=== PATIENT | female | born 1980 ===

== ENCOUNTER 2017-03-26 08:59 | Emergency (ER) | payer BC, MEDICAID, OTHER ==
[2017-03-26 09:02] VITALS: BMI 40.0
[2017-03-26 09:04] VITALS: BP 133/55; PULSE 79; RESP 20; TEMP 98.3; O2SAT 100
--- NOTE | 2017-03-26 09:40 | ED PDOC ---
HPI: General Adult Time Seen by Provider: 03/26/17 09:12 Chief Complaint (Nursing): Flu-like Symptoms Chief Complaint (Provider): Sore throat History Per: Patient History/Exam Limitations: no limitations Onset/Duration Of Symptoms: Days (today) Additional Complaint(s): Pt. with sore throat but able to swallow. Bodyaches. No cough, nasal congestion. No fever. No nausea, vomit, diarrhea, neck pain, abd pain, back pain. Mild headache frontal, not worst in here life. No numbness, tingles. No weakness. Has dysuria and increased freq. Past Medical History Reviewed: Nursing Documentation, Vital Signs Vital Signs: Last Vital Signs Temp 98.3 F 03/26/17 09:03 Pulse 79 03/26/17 09:03 Resp 20 03/26/17 09:03 BP 133/55 L 03/26/17 09:03 Pulse Ox 100 03/26/17 09:40 - Medical History Other PMH: uti - Surgical History Surgical History: Cholecystectomy - Family History Family History: States: Unknown Family Hx - Social History Current smoker - smoking cessation education provided: No Alcohol: None Drugs: Denies - Home Medications Home Medications: Ambulatory Orders Medication Instructions Recorded oxyCODONE/Acetaminophen [Percocet 5 - 325 mg PO Q4 06/27/16 5/325 mg Tab] Ciprofloxacin HCl [Cipro] 250 mg PO BID #6 tab 03/26/17 Ibuprofen [Motrin] 600 mg PO TID 7 Days tab 03/26/17 - Allergies Allergies/Adverse Reactions: Allergies Allergy/AdvReac Type Severity Reaction Status Date / Time No Known Allergies Allergy Verified 06/27/16 10:41 Review of Systems Constitutional: Negative for: Fever, Chills, Weakness Eyes: Negative for: Vision Change ENT: Positive for: Throat Pain. Negative for: Nose Pain, Nose Discharge, Nose Congestion, Mouth Pain Cardiovascular: Negative for: Chest Pain Respiratory: Negative for: Cough, Shortness of Breath Gastrointestinal: Negative for: Nausea, Vomiting, Abdominal Pain Genitourinary Female: Positive for: Dysuria, Frequency Musculoskeletal: Negative for: Neck Pain, Shoulder Pain, Arm Pain, Back Pain Skin: Negative for: Rash Neurological: Positive for: Headache. Negative for: Weakness, Numbness, Confusion Physical Exam - Reviewed Nursing Documentation Reviewed: Yes Vital Signs Reviewed: Yes - Physical Exam Appears: Positive for: Non-toxic, No Acute Distress Head Exam: Positive for: ATRAUMATIC, NORMAL INSPECTION, NORMOCEPHALIC Skin: Positive for: Normal Color, Warm, DRY Eye Exam: Positive for: EOMI, Normal appearance, PERRL ENT: Positive for: Normal ENT Inspection. Negative for: Nasal Congestion, Pharyngeal Erythema, Tonsillar Exudate Neck: Positive for: Normal, Painless ROM, Supple Cardiovascular/Chest: Positive for: Regular Rate, Rhythm Respiratory: Positive for: CNT, Normal Breath Sounds Gastrointestinal/Abdominal: Positive for: Normal Exam, Bowel Sounds, Soft. Negative for: Tenderness Back: Positive for: Normal Inspection. Negative for: L CVA Tenderness, R CVA Tenderness Extremity: Positive for: Normal ROM. Negative for: Tenderness, Pedal Edema Neurologic/Psych: Positive for: Alert, Oriented - ECG O2 Sat by Pulse Oximetry: 100 Pulse Ox Interpretation: Normal - Progress ED Course And Treament: 1050: Stable. AAOx3. Pain free. Tolerated PO. Fu with pcp. Disposition - Clinical Impression Clinical Impression: URI, acute, UTI (urinary tract infection) - Patient ED Disposition Is Patient to be Admitted: No Counseled Patient/Family Regarding: Studies Performed, Diagnosis, Need For Followup, Rx Given - Disposition Referrals: [facility] [Outside] - 03/27/17 Disposition: Routine/Home Disposition Time: 10:51 Condition: STABLE Additional Instructions: Return if not better in 3 days. Prescriptions: Ciprofloxacin HCl [Cipro] 250 mg PO BID #6 tab Ibuprofen [Motrin] 600 mg PO TID 7 Days tab Instructions: Urinary Tract Infection in Women (ED), Upper Respiratory Infection (ED) Forms: [employer] (Slovenian)
== END 2017-03-26 10:57 | disposition home or self-care (01) ==
LOC: H.ER 08:59
DX: J06.9 Acute upper respiratory infection, unspecified (principal); N39.0 Urinary tract infection, site not specified

== ENCOUNTER 2017-08-08 18:21 | Emergency (ER) | payer BC, OTHER ==
[2017-08-08 18:21] VITALS: BMI 40.0
[2017-08-08 18:30] VITALS: RESP 16; TEMP 98.3; O2SAT 97
--- NOTE | 2017-08-08 20:05 | ED PDOC ---
HPI: Chest Pain Time Seen by Provider: 08/08/17 18:51 Chief Complaint (Nursing): Chest Pain Chief Complaint (Provider): Chest Pain History Per: Patient History/Exam Limitations: no limitations Onset/Duration Of Symptoms: Days (x 3-4 days) Current Symptoms Are (Timing): Still Present Additional Complaint(s): 37 y/o female presents to the ED complaining of left axillary pain x 3-4 days. Describes the pain as "pin and needles" and "pinching". Denies any further medical complaints. PMD: Ranjit Clark MD Past Medical History Reviewed: Historical Data, Nursing Documentation, Vital Signs Vital Signs: Last Vital Signs Temp 98.3 F 08/08/17 18:26 Pulse 87 08/08/17 20:04 Resp 16 08/08/17 18:26 BP 133/83 08/08/17 20:04 Pulse Ox 97 08/08/17 21:10 - Medical History PMH: No Chronic Diseases - Surgical History Surgical History: Cholecystectomy Other surgeries: Tubal ligation - Family History Family History: States: Unknown Family Hx - Social History Current smoker - smoking cessation education provided: No (Never Smoked) Alcohol: None Drugs: Denies - Home Medications Home Medications: Ambulatory Orders Medication Instructions Recorded oxyCODONE/Acetaminophen [Percocet 5 - 325 mg PO Q4 06/27/16 5/325 mg Tab] Ciprofloxacin HCl [Cipro] 250 mg PO BID #6 tab 03/26/17 Ibuprofen [Motrin] 600 mg PO TID 7 Days tab 03/26/17 - Allergies Allergies/Adverse Reactions: Allergies Allergy/AdvReac Type Severity Reaction Status Date / Time No Known Allergies Allergy Verified 08/08/17 18:26 Review of Systems ROS Statement: Except As Marked, All Systems Reviewed And Found Negative (As per HPI, otherwise negative) Musculoskeletal: Positive for: Other (Left axillary pain) Physical Exam - Reviewed Nursing Documentation Reviewed: Yes Vital Signs Reviewed: Yes - Physical Exam Appears: Positive for: Non-toxic, No Acute Distress Head Exam: Positive for: ATRAUMATIC, NORMAL INSPECTION, NORMOCEPHALIC Skin: Positive for: Normal Color, Warm, Dry Neck: Positive for: Normal, Painless ROM, Supple Cardiovascular/Chest: Negative for: Murmur Respiratory: Negative for: Accessory Muscle Use, Respiratory Distress Gastrointestinal/Abdominal: Negative for: Tenderness Extremity: Positive for: Normal ROM, Capillary Refill (less than 2 sec. no redness warmth swelling or tendenress), Other (Left axillary is normal). Negative for: Tenderness, Deformity Neurologic/Psych: Positive for: Alert, Oriented (x3) - ECG ECG Rhythm: Positive for: Sinus Rhythm (Normal Sinus Rhythm at 77 beats/min) O2 Sat by Pulse Oximetry: 97 (RA) Pulse Ox Interpretation: Normal Medical Decision Making Medical Decision Making: Time: 19:34 Plan: Ibuprofen 600mg PO Reevaluation Time: 20:50 --Reviewed chart from 2014. Patient has same complaint, ultrasound was done. pt states pain then resolved on its own. --Patient reports that the pain resolved now. stable for dc. rec: darinel fuller. follow up in clinic tomororw. Scribe Attestation: Documented by Rachel Peres acting as a scribe for Tez Gary MD. Scribe Attestation: All medical record entries made by the Scribe were at my direction and personally dictated by me. I have reviewed the chart and agree that the record accurately reflects my personal performance of the history, physical exam, medical decision making, and the department course for this patient. I have also personally directed, reviewed, and agree with the discharge instructions and disposition. Disposition - Clinical Impression Clinical Impression: Axillary pain - Patient ED Disposition Is Patient to be Admitted: No Counseled Patient/Family Regarding: Studies Performed, Diagnosis, Need For Followup - Disposition Disposition: Routine/Home Disposition Time: 20:00 Condition: IMPROVED Additional Instructions: follow up in the clinic tomorrow return to the ED with any worsening or concerning symptoms Instructions: Ibuprofen Forms: [employer] (Tamazight)
[2017-08-08 20:42] VITALS: BP 133/83; PULSE 87
== END 2017-08-08 21:09 | disposition home or self-care (01) ==
LOC: H.ER 18:21
DX: M79.602 Pain in left arm (principal)

== ENCOUNTER 2017-08-10 22:11 | Emergency (ER) | payer BC, OTHER ==
[2017-08-10 22:12] VITALS: BMI 40.0
[2017-08-10 23:06] VITALS: TEMP 98.1
[2017-08-10] MEDS ORDERED: Sodium Chloride 0.9% 1,000 ML IV STA (23:19)
--- NOTE | 2017-08-10 23:24 | ED PDOC ---
HPI: General Adult Time Seen by Provider: 08/10/17 22:36 Chief Complaint (Nursing): Flu-like Symptoms History Per: Patient History/Exam Limitations: no limitations Additional Complaint(s): 37-year-old female otherwise in good health, presents complaining of one day history of chills, generalized weakness, nausea, sore throat, diarrhea x4. Otherwise: (-) cough, (-) URI symptoms, (-) SOB, (-) chest pain, (-) vomiting, ( -) abdominal pain, (-) flank pain, (-) urinary symptoms, (-) recent travel, (-) sick contacts. Past Medical History Vital Signs: Last Vital Signs Temp 98.1 F 08/10/17 23:03 Pulse 89 08/10/17 23:03 Resp 15 08/10/17 23:03 BP 121/70 08/10/17 23:03 Pulse Ox 99 08/10/17 23:03 - Medical History PMH: No Chronic Diseases - Surgical History Surgical History: Cholecystectomy - Family History Family History: States: Unknown Family Hx - Home Medications Home Medications: Ambulatory Orders Medication Instructions Recorded oxyCODONE/Acetaminophen [Percocet 5 - 325 mg PO Q4 06/27/16 5/325 mg Tab] Ciprofloxacin HCl [Cipro] 250 mg PO BID #6 tab 03/26/17 Ibuprofen [Motrin] 600 mg PO TID 7 Days tab 03/26/17 - Allergies Allergies/Adverse Reactions: Allergies Allergy/AdvReac Type Severity Reaction Status Date / Time No Known Allergies Allergy Verified 08/08/17 18:26 Review of Systems Constitutional: Positive for: Weakness. Negative for: Fever ENT: Positive for: Throat Pain. Negative for: Nose Discharge, Nose Congestion Cardiovascular: Negative for: Chest Pain, Palpitations Respiratory: Negative for: Cough, Shortness of Breath Gastrointestinal: Positive for: Nausea, Diarrhea. Negative for: Vomiting, Abdominal Pain Genitourinary Female: Negative for: Dysuria, Frequency Musculoskeletal: Negative for: Neck Pain, Back Pain Skin: Negative for: Rash, Lesions Physical Exam - Physical Exam Comments: GENERAL APPEARANCE: Patient is awake, alert, oriented x 3, in no acute distress. SKIN: Warm, dry; (-) cyanosis, (-) rash. EYES: (-) conjunctival pallor, (-) scleral icterus, (-) conjunctival hemorrhage. ENMT: Mucous membranes dry. TMs: (-) erythema. Airway patent: (-) stridor. Pharynx: (-) erythema, (-) exudate. NECK: (-) tenderness, (-) stiffness, (-) meningismus, (-) lymphadenopathy. CHEST AND RESPIRATORY: (-) accessory muscle use. Lungs: (-) rales, (-) rhonchi, (-) wheezes, (-) rub; breath sounds equal bilaterally. HEART AND CARDIOVASCULAR: (-) irregularity; (-) murmur, (-) gallop, (-) rub. ABDOMEN AND GI: Soft; (-) tenderness, (-) guarding; (-) organomegaly; (-) mass ; (-) CVA tenderness. EXTREMITIES: (-) deformity; (-) cellulitis, (-) lymphangitis; (-) edema. NEURO AND PSYCH: Mental status as above; (-) focal findings. - ECG O2 Sat by Pulse Oximetry: 99 Medical Decision Making Medical Decision Making: Impression : viral illness, r/o flu and strep pharyngitis. Plan : -- Labs -- IV fluids -- Urinalysis -- Rapid flu / strep -- IV zofran -- Reassess and disposition Lab results still pending. Case endorsed to DANIELLE Cassidy at midnight pending labs , reevaluation and final disposition. Disposition - Clinical Impression Clinical Impression: Diarrhea, Viral illness - Patient ED Disposition Is Patient to be Admitted: Transfer of Care (Case endorsed to DANIELLE Cassidy at midnight pending labs, reevaluation and final disposition.) - Disposition Disposition Time: 00:00 Condition: STABLE - PA / RAILROAD FIRER / Resident Statement / has reviewed & agrees with the documentation as recorded.
--- NOTE | 2017-08-10 23:46 | ED PDOC ---
- Laboratory Results Result Diagrams: 08/10/17 23:44 08/10/17 23:44 Urine POC: Negative - ECG O2 Sat by Pulse Oximetry: 99 (RA) Pulse Ox Interpretation: Normal Medical Decision Making Medical Decision Making: Case endorsed to news writer, Kendall Cassidy PA-C, at 0000 due to shift change. Pertinent details reviewed. Pending lab results, re-evaluation, and further disposition. VSS. 0200 Patient resting comfortably at this time and offers no additional complaints. Labs reviewed and grossly unremarkable. Flu, Rapid Strep pending. Upreg: Negative. On re-evaluation, patient reporting resolution of all symptoms besides her throat pain. Toradol 30mg IVP ordered. 0400 Rapid Strep: Negative Influenza: Negative On exam, patient remains AAOx3, in no acute distress. Lungs clear to auscultation, cardiac RRR, abdomen soft, non-tender, repeat neuro exam shows no focal findings. Repeat HR: 80. Repeat BP: 113/69. Repeat O2: 100% on RA. VSS, stable for discharge. Lab/Diagnostic results d/w the patient in great detail. Diagnosis of throat pain , nausea, diarrhea likely viral illness d/w the patient. Based on history, exam and diagnostic results, plan will be for outpatient follow up. Patient instructed to follow-up with pmd / referral provided / the clinic in 1- 2 days without fail. Advised to take medication as prescribed. Return to the emergency room at any time for any new or worsening symptoms. Patient states she fully agrees with and understands discharge instructions. States that she agrees with the plan and disposition. Verbalized and repeated discharge instructions and plan. I have given the patient opportunity to ask any additional questions. Disposition Counseled Patient/Family Regarding: Studies Performed, Diagnosis, Need For Followup, Rx Given - Clinical Impression Clinical Impression: Viral illness, Nausea, Viral pharyngitis, Throat pain in adult, Diarrhea - POA Present On Arrival: None - Disposition Referrals: [facility] [Outside] Disposition: Routine/Home Disposition Time: 04:04 Condition: STABLE Additional Instructions: FOLLOW UP WITH PMD IN 1-2 DAYS FOR FURTHER EVALUATION. RETURN TO ED WITH ANY NEW OR WORSENING SYMPTOMS. FLUIDS AND BLAND DIET RECOMMENDED. Prescriptions: Naproxen 500 mg PO BID PRN #20 tab PRN Reason: Pain, Moderate (4-7) Ondansetron ODT [Zofran ODT] 4 mg PO Q8 PRN #12 odt PRN Reason: Nausea/Vomiting Instructions: Viral Pharyngitis, Diarrhea in Adolescents and Adults, Sore Throat in Adults, [place] Diet, Nausea and Vomiting, Adult (DC), Viral Gastroenteritis, Adult (DC) Forms: [employer] (Frisian) Print Language: ARABIC Results - Lab Results Lab Results: 08/11/17 08/11/17 08/10/17 02:01 02:01 23:44 WBC RBC Hgb Hct MCV MCH MCHC RDW Plt Count MPV Neut % (Auto) Lymph % (Auto) [place] % (Auto) Eos % (Auto) Baso % (Auto) Neut # (Auto) Lymph # (Auto) [place] # (Auto) Eos # (Auto) Baso # (Auto) Sodium Potassium Chloride Carbon Dioxide Anion Gap BUN Creatinine Est GFR ( Amer) Est GFR (Non-Af Amer) Random Glucose Calcium Total Bilirubin AST ALT Alkaline Phosphatase Total Protein Albumin Globulin Albumin/Globulin Ratio Lipase Urine Color Yellow Urine Clarity Slighty-cloudy Urine pH 5.0 Ur Specific [place] 1.026 Urine Protein Negative Urine Glucose (UA) Neg Urine Ketones Negative Urine Blood Small Urine Nitrate Negative Urine Bilirubin Negative Urine Urobilinogen 0.2-1.0 Ur Leukocyte Esterase Small Urine RBC (Auto) 6 H Urine Microscopic WBC 2 Ur Squamous Epith Cells 3 Influenza Typ A,B (EIA) Negative for flu a/b Grp A Beta Strep Ag Negative 08/10/17 08/10/17 23:44 23:44 WBC 10.2 D RBC 4.74 Hgb 13.4 Hct 40.6 MCV 85.6 MCH 28.2 MCHC 32.9 L RDW 13.8 Plt Count 243 MPV 9.8 Neut % (Auto) 75.6 H Lymph % (Auto) 16.5 L [place] % (Auto) 6.6 Eos % (Auto) 0.8 Baso % (Auto) 0.5 Neut # (Auto) 7.7 H Lymph # (Auto) 1.7 [place] # (Auto) 0.7 Eos # (Auto) 0.1 Baso # (Auto) 0.1 Sodium 141 Potassium 4.2 Chloride 104 Carbon Dioxide 21 L Anion Gap 20 BUN 23 H Creatinine 0.7 Est GFR ( Amer) > 60 Est GFR (Non-Af Amer) > 60 Random Glucose 94 Calcium 8.9 Total Bilirubin 0.4 AST 22 ALT 29 Alkaline Phosphatase 68 Total Protein 6.9 Albumin 3.9 Globulin 3.0 Albumin/Globulin Ratio 1.3 Lipase 134 Urine Color Urine Clarity Urine pH Ur Specific [place] Urine Protein Urine Glucose (UA) Urine Ketones Urine Blood Urine Nitrate Urine Bilirubin Urine Urobilinogen Ur Leukocyte Esterase Urine RBC (Auto) Urine Microscopic WBC Ur Squamous Epith Cells Influenza Typ A,B (EIA) Grp A Beta Strep Ag
[2017-08-10 23:55] LABS: SQUAMOUS EPITHIAL 3 /hpf (0-5); URINE BILIRUBIN NEGATIVE (NEGATIVE); URINE BLOOD SMALL (NEGATIVE); URINE CLARITY SLIGHTY-CLOUDY (Clear); URINE COLOR YELLOW (YELLOW); URINE GLUCOSE (UA) NEG (Normal); URINE LEUKOCYTE ESTERASE SMALL Leu/uL (Negative); URINE PROTEIN NEGATIVE (NEGATIVE); URINE UROBILINOGEN 0.2-1.0 mg/dL (0.2-1.0)
[2017-08-10 23:59] LABS: ALB/GLOB RATIO 1.3 (1.0-2.1); ALBUMIN 3.9 g/dL (3.5-5.0); ALT/SGPT 29 U/L (9-52); AST/SGOT 22 U/L (14-36); BLOOD UREA NITROGEN 23 mg/dl (7-17); CALCIUM 8.9 mg/dL (8.4-10.2); GFR AFRICAN-AMERICAN > 60; GFR NON-AFRICAN AMERICAN > 60; LIPASE 134 U/L (23-300)
[2017-08-11 00:29] LABS: BASO # 0.1 K/uL (0.0-0.2); BASO % 0.5 % (0.0-2.0); EOS # 0.1 K/uL (0.0-0.7); EOS % 0.8 % (0.0-4.0); HEMOGLOBIN 13.4 g/dL (12.0-16.0); LYMPH # 1.7 K/uL (1.0-4.3); LYMPH % 16.5 % (20.0-40.0); MEAN CELL VOLUME 85.6 fl (81.0-99.0); MEAN CORPUSCULAR HEMOGLOBIN 28.2 pg (27.0-31.0); MEAN CORPUSCULAR HGB CONC 32.9 g/dL (33.0-37.0); MEAN PLATELET VOLUME 9.8 fl (7.2-11.7); MONO # 0.7 K/uL (0.0-0.8); MONO % 6.6 % (0.0-10.0); NEUT # 7.7 K/uL (1.8-7.0); NEUT % 75.6 % (50.0-75.0); RBC 4.74 Mil/uL (3.80-5.20); RED CELL DISTRIBUTION WIDTH 13.8 % (11.5-14.5); WHITE BLOOD COUNT 10.2 K/uL (4.8-10.8)
[2017-08-11 04:21] VITALS: BP 136/82; PULSE 80; RESP 16
[2017-08-11 07:35] VITALS: O2SAT 99
== END 2017-08-11 04:21 | disposition home or self-care (01) ==
LOC: H.ER 22:11
DX: B34.9 Viral infection, unspecified (principal)
CPT/HCPCS: 80053; 81003; 81025; 83690; 85025; 87070; 87086; 87430; 87804; 96374; 99284; J1885; J2405; J7040

== ENCOUNTER 2018-04-19 19:41 | Emergency (ER) | payer BC, OTHER ==
[2018-04-19 19:41] VITALS: BMI 40.0
[2018-04-19 19:52] VITALS: RESP 18; TEMP 98.8; O2SAT 99
[2018-04-19] MEDS ORDERED: Tdap Vaccine 0.5 ml Vial (10-64 yrs) IM ONE (20:06)
[2018-04-19] MEDS ORDERED: Lidocaine 1% Inj (20ml) ONE (20:07)
[2018-04-19] MEDS ORDERED: ceFAZolin IV 1 gm in Dextrose 1 GM/50 ML BAG IVPB ONE (20:15)
--- NOTE | 2018-04-19 20:17 | ED PDOC ---
HPI: Skin/Bite Injury Time Seen by Provider: 04/19/18 20:06 Chief Complaint (Nursing): Abnormal Skin Integrity Chief Complaint (Provider): Laceration to the Left Forearm History Per: Patient History/Exam Limitations: no limitations Onset/Duration Of Symptoms: Mins (x10) Current Symptoms Are (Timing): Still Present Additional Complaint(s): 37 y/o female presents to the ED for evaluation of a laceration to the left forearm. Patient states she was cleaning in the attic with daughter when she slipped and fell along the wet floor, leaning her left arm out , thus gripping her left forearm along two protruding nails and sustaining a laceration to the left forearm. PMD: non H Provider Tetanus Vaccination is up to Date. Past Medical History Reviewed: Historical Data, Nursing Documentation, Vital Signs Vital Signs: Last Vital Signs Temp 98.8 F 04/19/18 19:50 Pulse 110 H 04/19/18 19:50 Resp 18 04/19/18 19:50 BP 114/71 04/19/18 19:50 Pulse Ox 99 04/19/18 19:50 - Medical History PMH: No Chronic Diseases - Surgical History Surgical History: Cholecystectomy - Family History Family History: States: Unknown Family Hx - Living Arrangements Living Arrangements: With Family - Immunization History Hx Tetanus Toxoid Vaccination: No - Home Medications Home Medications: Ambulatory Orders Medication Instructions Recorded oxyCODONE/Acetaminophen [Percocet 5 - 325 mg PO Q4 06/27/16 5/325 mg Tab] Ciprofloxacin HCl [Cipro] 250 mg PO BID #6 tab 03/26/17 Ibuprofen [Motrin] 600 mg PO TID 7 Days tab 03/26/17 Naproxen 500 mg PO BID PRN #20 tab 08/11/17 Ondansetron ODT [Zofran ODT] 4 mg PO Q8 PRN #12 odt 08/11/17 - Allergies Allergies/Adverse Reactions: Allergies Allergy/AdvReac Type Severity Reaction Status Date / Time No Known Allergies Allergy Verified 08/08/17 18:26 Review of Systems ROS Statement: Except As Marked, All Systems Reviewed And Found Negative Musculoskeletal: Positive for: Arm Pain (laceration to the right forearm) Physical Exam - Reviewed Nursing Documentation Reviewed: Yes Vital Signs Reviewed: Yes - Physical Exam Appears: Positive for: In Acute Distress Extremity: Positive for: Normal ROM (of the right upper extremity. Including fingers) Neurologic/Psych: Positive for: Alert, Oriented. Negative for: Motor/Sensory Deficits - ECG O2 Sat by Pulse Oximetry: 99 Disposition - Clinical Impression Clinical Impression: Laceration of left arm with complication - Patient ED Disposition Is Patient to be Admitted: No Doctor Will See Patient In The: Office Counseled Patient/Family Regarding: Studies Performed, Diagnosis, Need For Followup, Rx Given - Disposition Referrals: [facility] [Outside] [facility] [Outside] Disposition: Routine/Home Disposition Time: 21:54 Condition: STABLE Forms: [employer] (Mozambican) Procedures - Laceration/Wound Repair Left Upper Arm Wound's Depth, Shape: irregular, nail-avulsed Wound Explored: clean Irrigated w/ Saline (ccs): 200 Betadine Prep?: Yes Anesthesia: 1% Lidocaine Volume Anesthetic (ccs): 10 Wound Debrided: minimal Wound Repaired With: Sutures Suture Size/Type: 3:0, proline Number of Sutures: 14 Layer Closure?: Yes Deep Layer Suture Size/Type: 4:0, chromic Wound Complexity: Complex Sterile Dressing Applied?: Yes Splint Applied?: No Sling Applied?: No
[2018-04-19 22:08] VITALS: BP 116/78; PULSE 78
== END 2018-04-19 22:20 | disposition home or self-care (01) ==
LOC: H.ER 19:41
DX: S51.812A Laceration without foreign body of left forearm, initial encounter (principal); W01.0XXA Fall on same level from slipping, tripping and stumbling without subsequent striking against object, initial encounter; Y92.89 Other specified places as the place of occurrence of the external cause
CPT/HCPCS: 12001; 90471; 90715; 96374; 99282; J0690

== ENCOUNTER 2018-05-02 13:32 | Emergency (ER) | payer BC, OTHER ==
[2018-05-02 13:33] VITALS: BMI 40.0
[2018-05-02 13:43] VITALS: BP 111/73; PULSE 67; RESP 16; TEMP 98.4; O2SAT 100
--- NOTE | 2018-05-02 14:16 | ED PDOC ---
HPI: Wound Care - HPI Time Seen by Provider: 05/02/18 14:03 Chief Complaint (Nursing): Suture/Staple Removal Chief Complaint (Provider): Suture Removal History Per: Patient Exam Limitations: no limitations Current Symptoms Are (Timing): Better Severity: Moderate Additional Complaint(s): 37 year old female with no past medical history presents to the ED for a suture removal. Patient was seen her on 04/19/2018 for a laceration repair after she tripped and fell, landing on her left hand/nail. Patient denies having any complaints. PMD: None provided Past Medical History Reviewed: Historical Data, Nursing Documentation, Vital Signs Vital Signs: Last Vital Signs Temp 98.4 F 05/02/18 13:40 Pulse 67 05/02/18 13:40 Resp 16 05/02/18 13:40 BP 111/73 05/02/18 13:40 Pulse Ox 100 05/02/18 13:40 HAN Report Viewed: Yes - Medical History PMH: No Chronic Diseases - Surgical History Surgical History: Cholecystectomy Other surgeries: tubal ligation - Family History Family History: States: No Known Family Hx - Social History Alcohol: None Drugs: Denies - Immunization History Hx Tetanus Toxoid Vaccination: No - Home Medications Home Medications: Ambulatory Orders Medication Instructions Recorded oxyCODONE/Acetaminophen [Percocet 5 - 325 mg PO Q4 06/27/16 5/325 mg Tab] Ciprofloxacin HCl [Cipro] 250 mg PO BID #6 tab 03/26/17 Ibuprofen [Motrin] 600 mg PO TID 7 Days tab 03/26/17 Ondansetron ODT [Zofran ODT] 4 mg PO Q8 PRN #12 odt 08/11/17 RX: Naproxen 500 mg PO BID PRN #20 tab 08/11/17 Cephalexin [cephalexin] 500 mg PO QID #40 cap 04/19/18 - Allergies Allergies/Adverse Reactions: Allergies Allergy/AdvReac Type Severity Reaction Status Date / Time No Known Allergies Allergy Verified 08/08/17 18:26 Review of Systems ROS Statement: Except As Marked, All Systems Reviewed And Found Negative Physical Exam - Reviewed Nursing Documentation Reviewed: Yes Vital Signs Reviewed: Yes - Physical Exam Appears: Positive for: Well, Non-toxic, No Acute Distress Head Exam: Positive for: ATRAUMATIC, NORMOCEPHALIC Skin: Positive for: Normal Color, Warm, Dry Extremity: Positive for: Other (14 sutures along clean wound while healing of left extensor surface of forearm.) Neurologic/Psych: Positive for: Alert, Oriented (3x) - ECG O2 Sat by Pulse Oximetry: 100 (RA) Pulse Ox Interpretation: Normal Medical Decision Making Medical Decision Makin:03 Initial impression: 37 year old female in the ED for suture removal. Initial plan: Verbal consent obtained for suture removal by me. 14 sutures along left forearm removed by me. STERI STRIPS PLACED. Scribe Attestation: Documented byAmmy Ro, acting as a scribe for Ansley Peres PA-C. Provider Scribe Attestation: All medical record entries made by the Scribe were at my direction and personally dictated by me. I have reviewed the chart and agree that the record accurately reflects my personal performance of the history, physical exam, medical decision making, and the department course for this patient. I have also personally directed, reviewed, and agree with the discharge instructions and disposition. Disposition - Clinical Impression Clinical Impression: Removal of suture - Patient ED Disposition Is Patient to be Admitted: No - Disposition Disposition: Routine/Home Disposition Time: 14:29 Condition: FAIR Instructions: Stitches Removal
== END 2018-05-02 14:29 | disposition home or self-care (01) ==
LOC: H.ER 13:32
DX: Z48.02 Encounter for removal of sutures (principal)

== ENCOUNTER 2018-09-02 12:18 | Emergency (ER) | payer BC, OTHER ==
[2018-09-02 12:31] VITALS: BMI 27.4
[2018-09-02 12:32] VITALS: BP 115/66; PULSE 83; RESP 16; TEMP 98.3; O2SAT 100
--- NOTE | 2018-09-02 12:52 | ED PDOC ---
HPI: General Adult Time Seen by Provider: 09/02/18 12:34 Chief Complaint (Nursing): Breast Problem Chief Complaint (Provider): Right Breast Pain History Per: Patient History/Exam Limitations: no limitations Onset/Duration Of Symptoms: Days (since 08/17/18) Current Symptoms Are (Timing): Still Present Additional Complaint(s): 38 year old female presents to the ED for evaluation of sharp, stabbing right breast pain which she started noticing at the end of her last menstrual cycle on 08/17/18. She initially thought it was related to her hormones from her menstruation, but since the pain persisted in intermittent episodes, she wanted to come in for eval. 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 Past Medical History Reviewed: Historical Data, Nursing Documentation, Vital Signs Vital Signs: Last Vital Signs Temp 98.3 F 09/02/18 12:31 Pulse 83 09/02/18 12:31 Resp 16 09/02/18 12:31 BP 115/66 09/02/18 12:31 Pulse Ox 100 09/02/18 12:31 Primary Care Provider: Non [facility] Provider, ([facility]) - Medical History PMH: No Chronic Diseases - Surgical History Surgical History: Cholecystectomy - Family History Family History: States: Unknown Family Hx - Social History Current smoker - smoking cessation education provided: No Alcohol: None Drugs: Denies - Immunization History Hx Tetanus Toxoid Vaccination: No - Home Medications Home Medications: Ambulatory Orders Medication Instructions Recorded oxyCODONE/Acetaminophen [Percocet 5 - 325 mg PO Q4 06/27/16 5/325 mg Tab] Ciprofloxacin HCl [Cipro] 250 mg PO BID #6 tab 03/26/17 Ibuprofen [Motrin] 600 mg PO TID 7 Days tab 03/26/17 Naproxen 500 mg PO BID PRN #20 tab 08/11/17 Ondansetron ODT [Zofran ODT] 4 mg PO Q8 PRN #12 odt 08/11/17 Cephalexin [cephalexin] 500 mg PO QID #40 cap 04/19/18 Ibuprofen [Motrin Tab] 600 mg PO Q6 PRN 7 Days tab 09/02/18 - Allergies Allergies/Adverse Reactions: Allergies Allergy/AdvReac Type Severity Reaction Status Date / Time No Known Allergies Allergy Verified 09/02/18 12:31 Review of Systems ROS Statement: Except As Marked, All Systems Reviewed And Found Negative Constitutional: Negative for: Fever, Chills Cardiovascular: Negative for: Chest Pain Respiratory: Negative for: Shortness of Breath Musculoskeletal: Positive for: Other (right breast pain described as sharp and stabbing, no nipple discharge) Skin: Negative for: Other (changes in skin or lumps to breasts) Physical Exam - Reviewed Nursing Documentation Reviewed: Yes Vital Signs Reviewed: Yes - Physical Exam Appears: Positive for: Well, No Acute Distress Skin: Positive for: Normal Color, Warm. Negative for: Rash Cardiovascular/Chest: Positive for: Regular Rate, Rhythm Respiratory: Positive for: Normal Breath Sounds. Negative for: Respiratory Distress Neurological/Psych: Positive for: Awake, Alert, Oriented (x3) Comments: Breast Exam performed with emergency medicine medical director MARYJANE Weiss. Bilateral breasts: (-) erythema, (-) skin changes, (-) nipple discharge able to be expressed, (-) lumps noted to breasts or bilateral axilla. - ECG O2 Sat by Pulse Oximetry: 100 (RA) Pulse Ox Interpretation: Normal Medical Decision Making Medical Decision Making: Time: 1248 Initial Impression: breast pain Initial Plan: --U-preg --Ibuprofen 600mg PO 1255 Patient advised that given lack of concern for abscess or infection of breast, it is recommended that she follow up with her PMD for outpatient mammography/US as those are not done on an emergent basis in the ED. Instructed to take Ibuprofen / Tylenol for pain as needed. Patient states she has an appointment with her PMD at [facility] in two weeks. She is stable for discharge home with return parameters discussed and all questions answered. Scribe Attestation: Documented by Nadege Jay, acting as a scribe for Rivka Castellon PA-C. Provider Scribe Attestation: All medical record entries made by the Scribe were at my direction and personally dictated by me. I have reviewed the chart and agree that the record accurately reflects my personal performance of the history, physical exam, medical decision making, and the department course for this patient. I have also personally directed, reviewed, and agree with the discharge instructions and disposition. Disposition - Clinical Impression Clinical Impression: Breast pain, right - Disposition Disposition: Routine/Home Disposition Time: 12:55 Condition: STABLE Additional Instructions: Follow up with your primary care doctor as planned. Return to ER if you start to notice skin redness, nipple discharge, or fevers. Take Ibuprofen as needed for pain. Prescriptions: Ibuprofen [Motrin Tab] 600 mg PO Q6 PRN 7 Days tab PRN Reason: Pain, Moderate (4-7) Instructions: Common Breast Problems, Mastalgia (DC) Forms: [facility] [facility] (Lithuanian) Print Language: TELUGU
== END 2018-09-02 13:19 | disposition home or self-care (01) ==
LOC: H.ER 12:18
DX: N64.4 Mastodynia (principal)

== ENCOUNTER 2018-09-02 21:52 | Emergency (ER) | payer OTHER ==
[2018-09-02 21:53] VITALS: BMI 27.4
[2018-09-02 22:18] VITALS: RESP 18; TEMP 98.6
[2018-09-02] MEDS ORDERED: Sodium Chloride 0.9% 1,000 ML IV STA (22:35)
[2018-09-02 23:18] LABS: BASO # 0.1 K/uL (0.0-0.2); BASO % 0.9 % (0.0-2.0); EOS % 0.4 % (0.0-4.0); HEMOGLOBIN 13.1 g/dL (12.0-16.0); LYMPH # 1.5 K/uL (1.0-4.3); MEAN CORPUSCULAR HEMOGLOBIN 28.2 pg (27.0-31.0); MEAN CORPUSCULAR HGB CONC 33.2 g/dL (33.0-37.0); MEAN PLATELET VOLUME 9.6 fl (7.2-11.7); MONO # 0.5 K/uL (0.0-0.8); MONO % 4.5 % (0.0-10.0); NEUT # 8.7 K/uL (1.8-7.0); NEUT % 80.2 % (50.0-75.0); RBC 4.63 Mil/uL (3.80-5.20); RED CELL DISTRIBUTION WIDTH 13.8 % (11.5-14.5); WHITE BLOOD COUNT 10.9 K/uL (4.8-10.8)
[2018-09-02 23:19] LABS: SQUAMOUS EPITHIAL 1 /hpf (0-5); URINE BILIRUBIN NEGATIVE (NEGATIVE); URINE BLOOD SMALL (NEGATIVE); URINE CLARITY CLEAR (Clear); URINE COLOR YELLOW (YELLOW); URINE GLUCOSE (UA) NEG (NEGATIVE); URINE LEUKOCYTE ESTERASE NEG Leu/uL (Negative); URINE PROTEIN NEGATIVE (NEGATIVE); URINE UROBILINOGEN 0.2-1.0 mg/dL (0.2-1.0)
[2018-09-02 23:24] LABS: ALB/GLOB RATIO 1.4 (1.0-2.1); ALT/SGPT 20 U/L (9-52); AST/SGOT 15 U/L (14-36); BLOOD UREA NITROGEN 19 mg/dl (7-17); CALCIUM 8.8 mg/dL (8.4-10.2); GFR NON-AFRICAN AMERICAN > 60
--- NOTE | 2018-09-02 23:53 | ED PDOC ---
HPI: Abdomen Time Seen by Provider: 09/02/18 22:31 Chief Complaint (Nursing): GI Problem Chief Complaint (Provider): GI Problem History Per: Patient History/Exam Limitations: no limitations Onset/Duration Of Symptoms: Days Current Symptoms Are (Timing): Still Present Additional Complaint(s): 38 y/o female with no significant PMHx presents to the ED for evaluation of a bdominal pain associated with diarrhea and nausea since this morning. Patient was seen here in this ER earlier this morning for right breast pain, was discharged home with instructions to follow up as nothing was detected on previous visits. Patient states shortly after getting home she began feeling these symptoms. PMD: no provider Past Medical History Reviewed: Historical Data, Nursing Documentation, Vital Signs Vital Signs: Last Vital Signs Temp 98.6 F 09/02/18 22:15 Pulse 121 H 09/02/18 22:15 Resp 18 09/02/18 22:15 BP 143/79 09/02/18 22:15 Pulse Ox 96 09/02/18 22:15 Primary Care Provider: Theodore Martinez - Medical History PMH: No Chronic Diseases - Surgical History Surgical History: Cholecystectomy - Family History Family History: States: Unknown Family Hx - Immunization History Hx Tetanus Toxoid Vaccination: No - Home Medications Home Medications: Ambulatory Orders Medication Instructions Recorded oxyCODONE/Acetaminophen [Percocet 5 - 325 mg PO Q4 06/27/16 5/325 mg Tab] Ciprofloxacin HCl [Cipro] 250 mg PO BID #6 tab 03/26/17 Ibuprofen [Motrin] 600 mg PO TID 7 Days tab 03/26/17 Naproxen 500 mg PO BID PRN #20 tab 08/11/17 Ondansetron ODT [Zofran ODT] 4 mg PO Q8 PRN #12 odt 08/11/17 Cephalexin [cephalexin] 500 mg PO QID #40 cap 04/19/18 Ibuprofen [Motrin Tab] 600 mg PO Q6 PRN 7 Days tab 09/02/18 Ondansetron ODT [Zofran ODT] 4 mg PO Q6 #30 odt 09/02/18 - Allergies Allergies/Adverse Reactions: Allergies Allergy/AdvReac Type Severity Reaction Status Date / Time No Known Allergies Allergy Verified 09/02/18 12:31 Review of Systems ROS Statement: Except As Marked, All Systems Reviewed And Found Negative Gastrointestinal: Positive for: Nausea, Abdominal Pain, Diarrhea Physical Exam - Reviewed Nursing Documentation Reviewed: Yes Vital Signs Reviewed: Yes - Physical Exam Appears: Positive for: No Acute Distress Head Exam: Positive for: ATRAUMATIC, NORMOCEPHALIC Skin: Positive for: Normal Color, Warm, Dry Eye Exam: Positive for: Normal appearance, EOMI, PERRL Neck: Positive for: Normal, Painless ROM Cardiovascular/Chest: Positive for: Regular Rate, Rhythm, Other (no erythema, no discharge, no skin abnormalities, no signs of cellulitis or abscess noted to the bilateral breasth. ). Negative for: Murmur Respiratory: Positive for: Normal Breath Sounds. Negative for: Respiratory Distress Gastrointestinal/Abdominal: Positive for: Normal Exam, Soft. Negative for: Tenderness Extremity: Positive for: Normal ROM. Negative for: Deformity Neurological/Psych: Positive for: Awake, Alert, Oriented (x3). Negative for: Motor/Sensory Deficits - Laboratory Results Result Diagrams: 09/02/18 23:12 09/02/18 23:12 Lab Results: Total Bilirubin 0.3 mg/dl (0.2-1.3) 09/02/18 23:12 AST 15 U/L (14-36) 09/02/18 23:12 ALT 20 U/L (9-52) 09/02/18 23:12 Alkaline Phosphatase 71 U/L (38-126) 09/02/18 23:12 Total Protein 6.9 G/DL (6.3-8.2) 09/02/18 23:12 Albumin 4.0 g/dL (3.5-5.0) 09/02/18 23:12 Globulin 2.9 gm/dL (2.2-3.9) 09/02/18 23:12 Albumin/Globulin Ratio 1.4 (1.0-2.1) 09/02/18 23:12 Urine Color Yellow (YELLOW) 09/02/18 23:12 Urine Clarity Clear (Clear) 09/02/18 23:12 Urine pH 6.0 (5.0-8.0) 09/02/18 23:12 Ur Specific [place] 1.021 (1.003-1.030) 09/02/18 23:12 Urine Protein Negative mg/dL (NEGATIVE) 09/02/18 23:12 Urine Glucose (UA) Neg mg/dL (NEGATIVE) 09/02/18 23:12 Urine Ketones Negative mg/dL (NEGATIVE) 09/02/18 23:12 Urine Blood Small (NEGATIVE) 09/02/18 23:12 Urine Nitrate Negative (NEGATIVE) 09/02/18 23:12 Urine Bilirubin Negative (NEGATIVE) 09/02/18 23:12 Urine Urobilinogen 0.2-1.0 mg/dL (0.2-1.0) 09/02/18 23:12 Ur Leukocyte Esterase Neg Madelyn/uL (Negative) 09/02/18 23:12 Urine RBC (Auto) 4 /hpf (0-3) H 09/02/18 23:12 Ur Squamous Epith Cells 1 /hpf (0-5) 09/02/18 23:12 - ECG O2 Sat by Pulse Oximetry: 96 (RA) Pulse Ox Interpretation: Normal Medical Decision Making Medical Decision Making: Time: 2234 A/P: -- Basic labs -- IV fluids and reglan -- Reassess patient -- CMP -- CBC with Differentials -- Sodium Chloride IV 1000 mls/hr -- Reglan 10 mg IVP -- Urinalysis Time: 0000 -- Discussed with patient lab results. Patient notes an improvement of symptoms on re-evaluation. Patient reports of having a follow up appointment scheduled with a new PMD on [address] this upcoming Saturday. Discussed follow up with flat lock machine operator if abdominal pain continues. Discussing need for mammogram w ith PMD if breast pain continues. Additionally discussed need to return if symptoms worsens or if developing new symptoms including vomiting, abdominal pain and fever. Scribe Attestation: Documented by Niko Blackwell, acting as a scribe Alyson Dumas MD. Provider Scribe Attestation: All medical record entries made by the Scribe were at my direction and person ally dictated by me. I have reviewed the chart and agree that the record accurately reflects my personal performance of the history, physical exam, medical decision making, and the department course for this patient. I have also personally directed, reviewed, and agree with the discharge instructions and disposition. Disposition - Clinical Impression Clinical Impression: Gastroenteritis, Breast pain, right - Patient ED Disposition Is Patient to be Admitted: No - Disposition [facility] Ranjit Calix MD [Staff Provider] - Disposition: Routine/Home Disposition Time: 00:00 Condition: STABLE Prescriptions: Ondansetron ODT [Zofran ODT] 4 mg PO Q6 #30 odt Instructions: Gastritis (DC) Forms: [facility] (Kyrgyz) Print Language: IRISH
[2018-09-02 23:55] VITALS: BP 122/63; PULSE 95
[2018-09-02 23:57] VITALS: O2SAT 96
== END 2018-09-02 23:55 | disposition home or self-care (01) ==
LOC: H.ER 21:52
DX: K52.9 Noninfective gastroenteritis and colitis, unspecified (principal); N64.4 Mastodynia
CPT/HCPCS: 80053; 81003; 81025; 85025; 96374; 99283; J2765; J7030